=== PATIENT | female | born 1995 | race Caucasian/White ===

== ENCOUNTER → 2016-10-16 | Outpatient (CLI) | payer BC ==
[2016-10-16 07:44] LABS: Basophils # (auto) 0 uL; Basophils % (auto) 0.3 % (0.0-2.0); Eosinophils # (auto) 0.2 uL; Eosinophils % (auto) 1.9 % (0.0-7.0); Hematocrit 38.9 % (36.0-46.0); Hemoglobin 12.3 g/dL (12.2-16.2); Lymphocytes # (auto) 2.3 uL; Lymphocytes % (auto) 24.7 % (10.0-50.0); Mean Corpuscular Hemoglobin 27.3 pg (28.0-32.0); Mean Corpuscular Hgb Conc. 31.7 g/dL (32.0-36.0); Mean Platelet Volume 7.3 fL (7.4-10.4); Monocytes # (auto) 0.4 uL; Monocytes % (auto) 4.9 % (0.0-12.0); Neutrophils # (auto) 6.2 uL; Neutrophils % (auto) 68.2 % (37.0-80.0); Platelet Count (auto) 259 10^3/uL (140-450); Red Cell Distribution Width 14.1 % (11.6-16.0); White Blood Cell 9.1 10^3/uL (4.4-10.8)
== END | disposition home or self-care (01) ==
LOC: LAB 07:29
PROVIDERS: ATTEND Obstetrics & Gynecology
DX: Z34.00 Encounter for supervision of normal first pregnancy, unspecified trimester (principal); O99.810 Abnormal glucose complicating pregnancy
CPT/HCPCS: 36415; 82951; 85025

== ENCOUNTER → 2016-12-18 | Outpatient (CLI) | payer BC ==
[2016-12-18 09:08] LABS: Basophils # (auto) 0 uL; Basophils % (auto) 0.4 % (0.0-2.0); Eosinophils # (auto) 0.1 uL; Eosinophils % (auto) 1.1 % (0.0-7.0); Hematocrit 38.8 % (36.0-46.0); Lymphocytes # (auto) 2.2 uL; Lymphocytes % (auto) 21.2 % (10.0-50.0); Mean Corpuscular Hemoglobin 28.1 pg (28.0-32.0); Mean Corpuscular Hgb Conc. 33.5 g/dL (32.0-36.0); Mean Corpuscular Volume 83.8 fL (80.0-100.0); Mean Platelet Volume 7.5 fL (7.4-10.4); Monocytes # (auto) 0.5 uL; Monocytes % (auto) 4.4 % (0.0-12.0); Neutrophils # (auto) 7.6 uL; Neutrophils % (auto) 72.9 % (37.0-80.0); Platelet Count (auto) 241 10^3/uL (140-450); Red Cell Distribution Width 13.3 % (11.6-16.0); White Blood Cell 10.4 10^3/uL (4.4-10.8)
== END | disposition home or self-care (01) ==
LOC: LAB 08:33
PROVIDERS: ATTEND Obstetrics & Gynecology
DX: Z34.00 Encounter for supervision of normal first pregnancy, unspecified trimester (principal); Z11.3 Encounter for screening for infections with a predominantly sexual mode of transmission; N76.0 Acute vaginitis
CPT/HCPCS: 36415; 85025; 86592; 87081

== ENCOUNTER 2017-01-08 08:45 | Observation (INO) | payer BC ==
[2017-01-08 09:51] LABS: Basophils # (auto) 0 uL; Basophils % (auto) 0.2 % (0.0-2.0); Eosinophils # (auto) 0.6 uL; Eosinophils % (auto) 5.9 % (0.0-7.0); Hematocrit 38.2 % (36.0-46.0); Hemoglobin 12.6 g/dL (12.2-16.2); Lymphocytes # (auto) 1.8 uL; Lymphocytes % (auto) 16.7 % (10.0-50.0); Mean Corpuscular Hemoglobin 28.2 pg (28.0-32.0); Mean Corpuscular Volume 85.2 fL (80.0-100.0); Mean Platelet Volume 7.7 fL (7.4-10.4); Monocytes # (auto) 0.5 uL; Neutrophils # (auto) 7.6 uL; Neutrophils % (auto) 72.2 % (37.0-80.0); Platelet Count (auto) 253 10^3/uL (140-450); Red Cell Distribution Width 13.9 % (11.6-16.0); White Blood Cell 10.5 10^3/uL (4.4-10.8)
[2017-01-08 10:02] LABS: Urine Bilirubin Negative (Negative); Urine Color Yellow (Yellow); Urine Glucose Normal (Normal); Urine Ketone Negative (Negative); Urine Mucus FEW (None Seen); Urine Nitrite Negative (Negative); Urine RBC 1 /hpf (0 - 4); Urine Squamous Epithelial Cell FEW /hpf (<5); Urine Urobilinogen Normal (Negative)
[2017-01-08 10:03] LABS: Urine Blood 3+ /uL (Negative)
[2017-01-08 10:10] LABS: Albumin 2.7 g/dL (3.4-5.0); BUN/Creatinine Ratio 15.8; Bilirubin, Total 0.3 mg/dL (0.2-1.0); Calcium 8.4 mg/dL (8.5-10.1); Potassium 3.7 mmol/L (3.5-5.1); Total Protein 6.3 g/dL (6.4-8.2); Uric Acid 3.4 mg/dL (2.6-6.0)
== END 2017-01-08 13:15 | disposition home or self-care (01) | DRG 781 ==
LOC: LDRP 08:45
PROVIDERS: ADMIT Specialist; ATTEND Specialist
DX: O26.893 Other specified pregnancy related conditions, third trimester (principal); R10.9 Unspecified abdominal pain; O62.9 Abnormality of forces of labor, unspecified; Z3A.38 38 weeks gestation of pregnancy
CPT/HCPCS: 36415; 59025; 76818; 80053; 81001; 81002; 84550; 85025; G0378

== ENCOUNTER 2017-01-09 14:55 | Inpatient (IN) | payer BC ==
[~2017-01-09] VITALS: Ht 162.6 cm; Wt 74.4 kg
[2017-01-09] MEDS: LACTATED RINGER'S 1,000 ML IV SCH (15:30)
[2017-01-09] MEDS ORDERED: LACT. RINGERS/OXYTOCIN 20UNITS 1,000 ML IV SCH (15:43)
[2017-01-09] MEDS ORDERED: WITCH HAZEL-GLYCERIN PAD TOP PRN (15:45)
[2017-01-09] MEDS ORDERED: PHISODERM TOP SOLN 240ML BTL TOP PRN (15:45)
[2017-01-09] MEDS ORDERED: LIDOCAINE 2%HCL (LOCAL ANESTH.) INJ 20ML MDV IJ ONE (15:45)
[2017-01-09] MEDS ORDERED: METHYLERGONOVINE MALEATE 0.2 MG/ML AMP IM PRN (15:45)
[2017-01-09] MEDS ORDERED: NALBUPHINE HCL 10 MG/1ml INJECTION IV PRN (15:45)
[2017-01-09] MEDS ORDERED: DERMOPLAST 60ML BOTTLE TOP PRN (15:45)
[2017-01-09] MEDS ORDERED: PROMETHAZINE HCL 25 MG/ML 1ML IV PRN (16:00)
[2017-01-09 16:49] LABS: Basophils # (auto) 0 uL; Basophils % (auto) 0.2 % (0.0-2.0); Eosinophils # (auto) 0.6 uL; Eosinophils % (auto) 4.8 % (0.0-7.0); Hematocrit 36.7 % (36.0-46.0); Hemoglobin 12.2 g/dL (12.2-16.2); Lymphocytes # (auto) 1.7 uL; Lymphocytes % (auto) 14.1 % (10.0-50.0); Mean Corpuscular Hemoglobin 28.4 pg (28.0-32.0); Mean Corpuscular Hgb Conc. 33.3 g/dL (32.0-36.0); Mean Corpuscular Volume 85.1 fL (80.0-100.0); Mean Platelet Volume 7.9 fL (7.4-10.4); Monocytes # (auto) 0.5 uL; Monocytes % (auto) 4.1 % (0.0-12.0); Neutrophils # (auto) 9.3 uL; Neutrophils % (auto) 76.8 % (37.0-80.0); Platelet Count (auto) 239 10^3/uL (140-450); Red Cell Distribution Width 13.7 % (11.6-16.0); White Blood Cell 12.2 10^3/uL (4.4-10.8)
[2017-01-09 17:00] LABS: INR 0.9 (0.9-1.15); Partial Thromboplastin Time 26.8 sec (22.64-33.71); Prothrombin Time 9.7 sec (9.37-12.3)
[2017-01-09 17:22] LABS: Urine Bilirubin Negative (Negative); Urine Blood Negative /uL (Negative); Urine Color Yellow (Yellow); Urine Glucose Normal (Normal); Urine Ketone Negative (Negative); Urine Mucus FEW (None Seen); Urine Nitrite Negative (Negative); Urine RBC <1 /hpf (0 - 4); Urine Squamous Epithelial Cell FEW /hpf (<5); Urine Urobilinogen Normal (Negative); Urine pH 6.5 (5.0-8.0)
[2017-01-09 21:28] LABS: BUN/Creatinine Ratio 12.2; Calcium 8.4 mg/dL (8.5-10.1); Potassium 3.9 mmol/L (3.5-5.1)
[2017-01-09 21:30] LABS: Bilirubin, Total 0.2 mg/dL (0.2-1.0); Total Protein 6.7 g/dL (6.4-8.2)
[2017-01-09] MEDS: HYDROCORTONE 1% TOPICAL CREAM 30 GM TUBE TOP SCH (22:00)
[2017-01-10] MEDS ORDERED: TERBUTALINE SULFATE 1 MG/ML 1ML VIAL SC ONE (02:53)
[2017-01-10] MEDS: HYDROCORTONE 1% TOPICAL CREAM 30 GM TUBE TOP SCH ×2 (06:00→14:00)
[2017-01-10] MEDS: LACTATED RINGER'S 1,000 ML IV SCH ×3 (07:30→16:25)
[2017-01-10] MEDS ORDERED: PREN-96 PO (08:53)
[2017-01-10] MEDS ORDERED: fentaNYL CITRATE 100 MCG/2 ML VL IV ONE (18:45)
[2017-01-10] MEDS ORDERED: fentaNYL W ROPIVACAINE 150 ML EPI SCH ×2 (18:45→20:15)
[2017-01-10] MEDS ORDERED: ePHEDrine SULFATE 50 MG/ML AMP IV ONE ×2 (18:45→20:15)
[2017-01-10] MEDS ORDERED: LIDOCAINE HCL 2 %PF INJ 10ML AMP IJ ONE (18:45)
[2017-01-10] MEDS ORDERED: SODIUM CHLORIDE 0.9% 500 ML IV PRN (20:04)
[2017-01-10] MEDS ORDERED: NALOXONE HCL 0.4 MG/ML VIAL IV ONE (20:15)
[2017-01-10] MEDS ORDERED: ceFAZolin 1GM/50ML D5W 50 ML IV SCH (22:00)
[2017-01-11] VITALS (12 sets, daily range): BP systolic 122–139; BP diastolic 58–71
[2017-01-11] MEDS ORDERED: MEPERIDINE HCL (25 MG/ML) 1ML VIAL ONE (04:30)
[2017-01-11] MEDS ORDERED: hydrALAZINE HCL 20 MG/ML VL IV PRN (04:30)
[2017-01-11] MEDS ORDERED: ONDANSETRON HCL 4 MG/2 ML VIAL IV ONE (04:30)
[2017-01-11] MEDS ORDERED: ONDANSETRON HCL 4 MG/2 ML VIAL IV PRN (04:30)
[2017-01-11] MEDS ORDERED: ePHEDrine SULFATE 50 MG/ML AMP IV PRN (04:30)
[2017-01-11] MEDS ORDERED: MORPHINE SULF INJ 2 MG/ML SYRINGE 1ML IV PRN (04:30)
[2017-01-11] MEDS ORDERED: MEPERIDINE HCL (25 MG/ML) 1ML VIAL IM ONE ×2 (04:45→05:15)
[2017-01-11] MEDS: HYDROmorphone HCL 2 MG/ML VL IV PRN ×8 (04:51→21:49)
[2017-01-11] MEDS ORDERED: OXYTOCIN 10UNIT/ML 1ML VIAL ONE (04:59)
[2017-01-11] MEDS ORDERED: ceFAZolin 1GM/50ML D5W 50 ML IV SCH (06:00)
[2017-01-11] MEDS: HYDROCORTONE 1% TOPICAL CREAM 30 GM TUBE TOP SCH ×3 (06:30→22:00)
[2017-01-11] MEDS: KETOROLAC TROMETH 30 MG/ML 1ML VIAL IV PRN ×2 (07:51→15:46)
[2017-01-11] MEDS: ceFAZolin 1GM/50ML D5W 50 ML IV SCH ×2 (12:41→20:00)
[2017-01-11] MEDS: LACT. RINGERS/OXYTOCIN 20UNITS 1,000 ML IV SCH ×2 (13:00→21:00)
[2017-01-11 16:56] LABS: Basophils # (auto) 0 uL; Basophils % (auto) 0.1 % (0.0-2.0); Eosinophils # (auto) 0.3 uL; Hematocrit 31.8 % (36.0-46.0); Hemoglobin 10.8 g/dL (12.2-16.2); Lymphocytes # (auto) 1.7 uL; Lymphocytes % (auto) 12.9 % (10.0-50.0); Mean Corpuscular Hemoglobin 28.8 pg (28.0-32.0); Mean Corpuscular Hgb Conc. 33.9 g/dL (32.0-36.0); Mean Corpuscular Volume 84.9 fL (80.0-100.0); Mean Platelet Volume 7.7 fL (7.4-10.4); Monocytes # (auto) 0.7 uL; Neutrophils # (auto) 10.8 uL; Platelet Count (auto) 182 10^3/uL (140-450); White Blood Cell 13.6 10^3/uL (4.4-10.8)
[2017-01-12] MEDS: KETOROLAC TROMETH 30 MG/ML 1ML VIAL IV PRN (01:09)
[2017-01-12] MEDS: HYDROmorphone HCL 2 MG/ML VL IV PRN ×2 (03:09→06:00)
[2017-01-12] MEDS: ceFAZolin 1GM/50ML D5W 50 ML IV SCH ×3 (04:00→19:54)
[2017-01-12] MEDS: HYDROCORTONE 1% TOPICAL CREAM 30 GM TUBE TOP SCH ×3 (06:00→22:10)
[2017-01-12 06:24] LABS: Basophils # (auto) 0 uL; Basophils % (auto) 0.3 % (0.0-2.0); Eosinophils # (auto) 0.5 uL; Hematocrit 32.7 % (36.0-46.0); Hemoglobin 11.1 g/dL (12.2-16.2); Lymphocytes # (auto) 1.9 uL; Lymphocytes % (auto) 14.6 % (10.0-50.0); Mean Corpuscular Hemoglobin 29.1 pg (28.0-32.0); Mean Corpuscular Hgb Conc. 34.1 g/dL (32.0-36.0); Mean Corpuscular Volume 85.4 fL (80.0-100.0); Mean Platelet Volume 7.5 fL (7.4-10.4); Monocytes # (auto) 0.6 uL; Monocytes % (auto) 4.7 % (0.0-12.0); Neutrophils # (auto) 10.2 uL; Neutrophils % (auto) 76.4 % (37.0-80.0); Platelet Count (auto) 215 10^3/uL (140-450); Red Cell Distribution Width 13.9 % (11.6-16.0); White Blood Cell 13.3 10^3/uL (4.4-10.8)
[2017-01-12 06:48] VITALS: BP 123/68
[2017-01-12] MEDS ORDERED: HYDROcodone-ACET 10/325MG TAB PO PRN (08:30)
[2017-01-12] MEDS ORDERED: BISACODYL 10 MG RECT SUPP PR PRN (08:30)
[2017-01-12] MEDS: DOCUSATE SOD 100 MG CAP PO SCH ×2 (09:34→21:41)
[2017-01-12] MEDS ORDERED: DOCUSATE CALCIUM 240 MG CAP PO PRN (10:00)
[2017-01-12] MEDS ORDERED: HYDROcodone-ACET 5/325MG TAB PO PRN (10:30)
[2017-01-12 11:53] VITALS: BP 122/62
[2017-01-12] MEDS: SIMETHICONE 80 MG CHEWABLE TABLET PO SCH ×3 (12:35→21:41)
[2017-01-12] MEDS: IBUPROFEN 800 MG TAB PO PRN ×2 (12:48→20:51)
[2017-01-12 15:50] VITALS: BP 105/53
[2017-01-12] MEDS: HYDROcodone-ACET 5/325MG TAB PO PRN ×2 (17:19→22:23)
[2017-01-12 19:45] VITALS: BP 122/69
[2017-01-12 23:50] VITALS: BP 125/69
[2017-01-13] MEDS: HYDROcodone-ACET 5/325MG TAB PO PRN ×5 (02:40→20:04)
[2017-01-13] MEDS: ceFAZolin 1GM/50ML D5W 50 ML IV SCH (03:33)
[2017-01-13 03:35] VITALS: BP 118/59
[2017-01-13] MEDS: IBUPROFEN 800 MG TAB PO PRN ×3 (05:33→22:28)
[2017-01-13] MEDS: HYDROCORTONE 1% TOPICAL CREAM 30 GM TUBE TOP SCH ×3 (05:33→22:28)
[2017-01-13] MEDS: SIMETHICONE 80 MG CHEWABLE TABLET PO SCH ×2 (05:33→11:37)
[2017-01-13 07:10] VITALS: BP 121/64
[2017-01-13] MEDS: DOCUSATE SOD 100 MG CAP PO SCH ×2 (09:52→22:28)
[2017-01-13 11:48] VITALS: BP 117/59
[2017-01-13 16:27] VITALS: BP 127/74
[2017-01-13 19:30] VITALS: BP 136/73
[2017-01-14 00:20] VITALS: BP 133/61
[2017-01-14] MEDS: HYDROcodone-ACET 5/325MG TAB PO PRN ×3 (00:50→10:29)
[2017-01-14 04:00] VITALS: BP 128/59
[2017-01-14] MEDS: HYDROCORTONE 1% TOPICAL CREAM 30 GM TUBE TOP SCH (06:04)
[2017-01-14 08:21] VITALS: BP 126/77
[2017-01-14] MEDS: DOCUSATE SOD 100 MG CAP PO SCH (08:37)
[2017-01-14] MEDS: IBUPROFEN 800 MG TAB PO PRN (08:37)
== END 2017-01-14 11:10 | disposition home or self-care (01) | DRG 765 ==
LOC: LDRP 14:55
PROVIDERS: ADMIT Specialist; ATTEND Specialist
PROC: 10D00Z1 Extraction of Products of Conception, Low, Open Approach (ICD-10-PCS; principal; 2017-01-11 03:41)
DX: O76 Abnormality in fetal heart rate and rhythm complicating labor and delivery (principal); K83.1 Obstruction of bile duct; O26.62 Liver and biliary tract disorders in childbirth; O75.89 Other specified complications of labor and delivery; L29.9 Pruritus, unspecified; Z3A.39 39 weeks gestation of pregnancy; Z37.0 Single live birth
CPT/HCPCS: 36415; 59025; 80053; 80307; 81001; 81002; 85025; 85610; 85730; 86850; 86900; 86901; 96361; 96366; 96375; J0690; J1885; J2590; J3010

== ENCOUNTER → 2020-03-15 | Outpatient (CLI) | payer BC ==
[~2020-03-15] MED LIST: PREN-96 PO
== END | disposition home or self-care (01) ==
LOC: LAB 12:37
PROVIDERS: ATTEND Obstetrics & Gynecology
DX: N39.0 Urinary tract infection, site not specified (principal)
CPT/HCPCS: 87086